=== PATIENT | female | born 1980 | race Asian ===

== ENCOUNTER 2017-11-04 15:54 | Emergency (ER) | payer SELFPAY ==
[~2017-11-04] VITALS: Ht 170.2 cm; Wt 61.0 kg
[2017-11-04 16:09] VITALS: BP 157/106
== END 2017-11-04 16:57 | disposition home or self-care (01) ==
LOC: ER 16:45
DX: G92 Toxic encephalopathy (principal); F14.10 Cocaine abuse, uncomplicated
CPT/HCPCS: 99283